=== PATIENT | female | born 1940 | race Caucasian/White ===

== ENCOUNTER → 2018-05-21 | Outpatient (CLI) | payer MEDICARE, BC | LOC: LABWHC1 11:55 | PROVIDERS: ATTEND Orthopaedic Surgery | DX: Z01.812 Encounter for preprocedural laboratory examination (principal) | CPT/HCPCS: 87070 ==

== ENCOUNTER 2018-05-25 11:20 | Inpatient (IN) | payer MEDICARE, BC ==
[2018-05-19 14:18] VITALS: BMI 42.5
--- NOTE | 2018-05-24 10:21 | HP ---
HISTORY AND PHYSICAL CHIEF COMPLAINT: Right knee pain. HISTORY OF PRESENT ILLNESS: The patient is a 78-year-old retired female who presents with progressive right knee pain secondary to osteoarthrosis worsening over the past year. She has a difficult time with weightbearing activities. She notes significant pain and she does limp. She has been using a cane in addition has tried medications and injections with only partial temporary relief. PAST MEDICAL HISTORY: Significant for asthma, breast cancer, depression, hypertension. PAST SURGICAL HISTORY: Significant for cholecystectomy. CURRENT MEDICATIONS: Aleve and aspirin, atenolol, atorvastatin. ALLERGIES: She denies drug allergies. FAMILY HISTORY: Significant for cancer. SOCIAL HISTORY: Significant for previous tobacco use. REVIEW OF SYSTEMS: Sixteen point review of systems otherwise reviewed and is noncontributory. PHYSICAL EXAMINATION: On examination, the patient is approximately 5 foot 1, 220 pounds of endomorphic habitus. HEENT exam is nonfocal. NECK: Supple. She has painless passive motion of the right hip. Straight leg raise is negative. Active motion right knee -6 to 100 degrees of flexion. She has a moderate effusion. She is tender about the lateral joint line. She has genu valgum alignment. Collaterals are stable, Rekha's negative, Marleny's is equivocal. Her distal neurovascular appears intact in the right lower extremity. X-rays of the right knee obtained in the office show severe lateral and patellofemoral compartment narrowing. IMPRESSION: 1. Right knee severe lateral and patellofemoral compartment osteoarthrosis. 2. BMI of 41.57-morbid obesity. RECOMMENDATIONS: I talked to the patient at length regarding her condition and treatment options. At this point, she remains quite symptomatic despite conservative measures. After thorough discussion, she opts to proceed with surgery. We will plan to proceed with right total knee arthroplasty. We will institute DVT prophylaxis postoperatively. MMODL / IJN: [id number] /
[~2018-05-25 11:20] MED LIST: ACETAMINOPHEN TAB 500 MG TAB PO ONE; DEXAMETHASONE SOD PHOSPHATE 10 MG/ML 1 ML VIAL IV ONE; HYDROmorphone 1 MG/ML 1 ML SYRINGE IVP PRN; LIDOCAINE 1% 20 ML VIAL (10MG/ML) FOR IV START INTRADERMA PRN; MELOXICAM 7.5 MG TAB PO ONE; MIDAZOLAM (PF) 2 MG/2 ML VIAL IV PRN; ONDANSETRON 4 MG/2 ML VIAL IVP ONE; TRANEXAMIC ACID 1,000 MG in SODIUM CHLORIDE 0.9% 50 ML IVPB ONE; ceFAZolin IN SWFI 2 GM/20 ML SYRINGE IVP ONE; fentaNYL (PF) 50 MCG/ML 2 ML AMP IV PRN
[2018-05-25] MEDS: LACTATED RINGERS 1,000 ML IV SCH ×2 (12:56→13:59)
[2018-05-25] MEDS ORDERED: MIDAZOLAM 2 MG/2 ML VIAL IV ONE (13:10)
[2018-05-25] MEDS ORDERED: fentaNYL (PF) 50 MCG/ML 2 ML AMP IV ONE (13:10)
[2018-05-25] MEDS ORDERED: ROPIVACAINE 1,100 MG, SODIUM CHLORIDE 0.9% 500 ML 330 ML MISCELLANE PRN ×2 (13:34)
--- NOTE | 2018-05-25 13:37 | P.ONQ ---
Anesthesiology Proc Note - PNB - Peripheral Nerve Block Performed Right Adductor Canal Infusion Time Out Performed: Yes Procedure Start Time: 13:10 Procedure Stop Time: 13:25 Indication: Requested by physician Specifically requested for management of pain by : Alok Dickerson Sedation Type: Sedate with meaningful contact maintained Preparation: Sterile Dressing Position: Supine Needle Types: Other (see comment) (Pujunk) Needle Size: 100mm (4") Needle Gauge: 20 Technique: Ultrasound Injectate: 0.5% Ropivacaine (see comment for volume) (20 ml) Blood Aspirated: No Pain Paresthesia on Injection Noted: No Resistance on Injection: Normal Events: Uneventful and Well Tolerated
[2018-05-25] MEDS ORDERED: ROPIVACAINE 246.25 MG, EPINEPHrine 0.5 MG, KETOROLAC 30 MG, cloNIDine HCL/PF 80 MCG, WA... MISCELLANE ONE ×5 (13:39)
[2018-05-25] MEDS ORDERED: MIDAZOLAM 2 MG/2 ML VIAL ONE (14:02)
[2018-05-25] MEDS ORDERED: fentaNYL (PF) 50 MCG/ML 2 ML AMP ONE (14:02)
[2018-05-25] MEDS ORDERED: PROPOFOL 10 MG/ML 20 ML VIAL IV ONE (14:02)
[2018-05-25] MEDS ORDERED: ceFAZolin 3,000 MG in SODIUM CHLORIDE 0.9% IRRIGATIO 3,000 ML IRRIGATION ONE (14:31)
[2018-05-25] MEDS ORDERED: HYDROcodone/APAP 5-325MG 1 EACH TAB PO PRN (15:41)
[2018-05-25] MEDS ORDERED: NALOXONE 0.4 MG/ML 1 ML VIAL IV PRN (15:41)
[2018-05-25] MEDS ORDERED: MAGNESIUM HYDROXIDE 2,400 MG/10 ML CUP PO PRN (15:41)
[2018-05-25] MEDS ORDERED: HYDROmorphone 1 MG/ML 1 ML SYRINGE IVP PRN (15:41)
[2018-05-25] MEDS ORDERED: ONDANSETRON 4 MG/2 ML VIAL IVP PRN (15:41)
[2018-05-25] MEDS ORDERED: LACTATED RINGERS 1,000 ML IV ONE (15:52)
--- NOTE | 2018-05-25 16:11 | P.OP ---
Date of Procedure: 05/25/18 Preoperative Diagnosis: Right knee severe tricompartmental osteoarthrosis Postoperative Diagnosis: Same Procedure(s) Performed: Right total knee arthroplasty-cruciate substitutingcemented Implants: Depuy Attune size 5 cemented femoral component, size 4 cemented tibial component , 11 mm articular surface, 32 mm cemented patellar component, 50 mm tibial stem. This is a posterior stabilized implant. Anesthesia: spinal Surgeon: Alok Dickerson Clinical Lab Specialist #1: Alessandro Chinchilla Estimated Blood Loss (ml): 50 Pathology: other (Bone fragments) Condition: stable Disposition: PACU Indications for Procedure: The patient is a 78-year-old female who presents with severe right knee pain secondary osteoarthrosis despite conservative measures. A discussion of the risks and benefits of operative intervention versus continued conservative measures was made with patient. She opted to proceed with surgery. Operative risks to include infection, neurovascular injury, development of blood clots, possible component loosening, possible component failure and need for subsequent procedures was discussed. Informed consent was obtained. Operative Findings: As below Description of Procedure: The patient was brought to the operating room, and after induction of spinal anesthesia the right lower extremity was prepped and draped in a normal fashion. The tourniquet was inflated to 270 mm marker. A longitudinal incision extending 3 finger breaths above the superior pole of patella extending to the medial aspect the tibial tubercle was then made. The skin and subcutaneous tissues were divided sharply. Electrocautery was used for hemostasis. A medial parapatellar arthrotomy was performed. The medial soft tissues to include the superficial and deep portions of the medial collateral ligament were elevated subperiosteally. The patella was everted. A portion of the retropatellar fat pad was excised sharply. The lateral collateral ligament and popliteus were elevated subperiosteally with electrocautery off the lateral femoral upper condyle to help with balancing. The anterior cruciate ligament was sacrificed. Blunt retractors were placed. A starting hole was made in the distal femur 1 cm anterior to the posterior cruciate ligament origin. An intramedullary femoral guide was then inserted planning on 5 valgus distal cut with 9 mm distal resection. The cutting block was pinned in place. The distal cut was then made. The posterior referencing sizing guide was utilized. I felt size 5 was most appropriate. 3 of external rotation was built into the system and verified off the trans-epicondylar axis and the posterior condyles. The cutting block was pinned in place. The anterior, posterior, and chamfer cuts then made. Bone fragments were removed. The intercondylar guide was placed and the notch cut was made with a sagittal saw. The bone block was removed in one fragment. The trial component was then placed. There is good anterior to posterior and medial to lateral fit. The distal peg holes were drilled. The trial component was removed. Attention was then paid towards preparing the proximal femur. An extra medullary guide was utilized in line with the tibial shaft and second metatarsal distally. I planned on 6 mm resection from the medial compartment. The cutting block was pinned in place. The proximal tibial cut was then made. The bone was removed in one fragment. The remnants of the medial and lateral menisci were excised at the capsular junction with electrocautery. The tibia sized most appropriately at size 4. The trial femoral and tibial components were placed along with an 11 mm articular surface. I was able to obtain full flexion and extension with internal and external rotation. After several flexion and extension cycles, the tibial rotation was marked with electrocautery line with the medial one third of the tibial tubercle. Attention was then paid towards preparing the patella. A patella reamer was utilized taking stem to 14 mm of bone stock. A good flush cut was made. The patella sized most appropriately 32 mm. The peg holes were drilled. The trial components placed. I had good patellofemoral tracking with no hands technique. The trial components were then removed. The tibia was prepared in the appropriate rotation with appropriate drill and keel punch. I planned on 50 mm of additional tibial stem. The posterior osteophytes were removed with a curved osteotome. The flexion and extension gaps were checked and felt to be symmetric at 11 mm. A trial components were then removed. The posterior soft tissues were injected with ropivacaine. The bony surfaces were prepared with pulsatile lavage and dried. The tibial component was then cemented place was fully seated. Excess cement was removed. The femoral component cemented place and was fully seated. Excess cement was removed. The trial 11 mm Tickler surface was placed and the knee was put in full extension. The patella component was cemented place. After the cement had sufficiently hardened, the knee was again taken through a range of motion. Again I was able to obtain full flexion and extension with varus and valgus stress. The trial 11 mm articular surface was removed and the final one inserted. This was fully seated. Care was taken to avoid any soft tissue interposition. Pulsatile lavage was again utilized. The medial parapatellar arthrotomy was closed with #2 Ethibond suture. The tourniquet was deflated with approximately 1 hour total tourniquet time. Final hemostasis was obtained with the cautery. There was minimal bleeding therefore a deep drain was not placed. The subcutaneous tissues were reapproximated with interrupted 2 -0 Vicryl sutures. The skin was reprepped with 3-0 subcuticular strata fix suture. Skin tape and adhesive was applied. A sterile dressing was applied. The patient was awoken from sedation and transferred to recovery room in good condition. Blood loss was estimated at 50 mL. No complications were incurred. Sponge and needle counts were correct at the end of the case.
--- NOTE | 2018-05-25 16:56 | XR ---
PROCEDURE: XR knee limited RT - 2V DATE AND TIME: 05/25/2018 4:51 PM CLINICAL INDICATION: PHH; Evaluation for Postop abnormality and alignment TECHNIQUE: AP and lateral views COMPARISON: None FINDINGS: TKR has anatomic positioning and alignment. Postprocedural changes noted. No unexpected fin dings. IMPRESSION: Postoperative examination.
[2018-05-25] MEDS: HYDROmorphone 1 MG/ML 1 ML SYRINGE IVP PRN ×2 (17:47→23:39)
[2018-05-25] MEDS: traMADol 50 MG TAB PO PRN (17:47)
[2018-05-25] MEDS: ceFAZolin IN SWFI 2 GM/20 ML SYRINGE IVP SCH (22:26)
[2018-05-25] MEDS: SENNOSIDES-DOCUSATE SODIUM 1 EACH TAB PO SCH (22:27)
[2018-05-25] MEDS: HYDROcodone/APAP 5-325MG 1 EACH TAB PO PRN (22:28)
[2018-05-26] MEDS: HYDROcodone/APAP 5-325MG 1 EACH TAB PO PRN ×3 (05:18→17:50)
[2018-05-26] MEDS: HYDROmorphone 1 MG/ML 1 ML SYRINGE IVP PRN ×2 (05:19→21:17)
[2018-05-26] MEDS: ceFAZolin IN SWFI 2 GM/20 ML SYRINGE IVP SCH (05:19)
[2018-05-26] MEDS: LACTATED RINGERS 1,000 ML IV SCH (05:49)
--- NOTE | 2018-05-26 07:35 | P.PN ---
Progress Note - Text Progress Note Date: 05/26/18 Postoperative day # 1 status post Right total knee arthroplasty, under spinal anesthesia, and adductor canal catheter placed for postoperative analgesia, currently at ropivacaine 0.2% 8 mL per hour and continuous infusion, visual analogue scale is 5/10, patient using oral pain medication for breakthrough pain. Mostly in the posterior aspect of the knee, Assessment and plan= Acute postoperative pain, adductor canal catheter for pain control, we'll continue the same management.
[2018-05-26 07:40] LABS: Basophils % (A) 0 %; Eosinophils % (A) 0 %; HCT 40.4 % (34.0-46.0); HGB 13.5 gm/dL (11.4-16.0); Lymphocytes # (A) 0.8 k/uL (1.0-4.8); Lymphocytes % (A) 6 %; MCH 30.9 pg (25.0-35.0); MCHC 33.4 g/dL (31.0-37.0); MCV 92.5 fL (80.0-100.0); Mean Platelet Volume 6.9; Monocytes # (A) 0.7 k/uL (0-1.0); Monocytes % (A) 6 %; Neutrophils # (A) 11.5 k/uL (1.3-7.7); Neutrophils % (A) 88 %; Platelet Count 182 k/uL (150-450); RBC 4.37 m/uL (3.80-5.40); RDW 13.6 % (11.5-15.5); WBC 13.1 k/uL (3.8-10.6)
[2018-05-26 09:11] LABS: Albumin 3.1 g/dL (3.5-5.0); Calcium 9.2 mg/dL (8.4-10.2); Potassium 4.9 mmol/L (3.5-5.1); Total Bilirubin 0.5 mg/dL (0.2-1.3); Total Protein 5.7 g/dL (6.3-8.2)
[2018-05-26] MEDS: LETROZOLE 2.5 MG TAB PO SCH (09:48)
[2018-05-26] MEDS: RIVAROXABAN 10 MG TAB PO SCH (09:48)
[2018-05-26] MEDS: traMADol 50 MG TAB PO PRN ×3 (09:48→21:17)
[2018-05-26] MEDS: CHOLECALCIFEROL 1,000 UNIT TAB PO SCH (09:48)
[2018-05-26] MEDS: ATENOLOL 25 MG TAB PO SCH (09:49)
[2018-05-26] MEDS: ATORVASTATIN 10 MG TAB PO SCH (09:49)
--- NOTE | 2018-05-26 10:57 | P.PN ---
Subjective Progress Note Date: 05/26/18 Principal diagnosis: Status post right total knee arthroplasty Patient is in today resting in her hospital bed, her daughter is present with her at bedside. Patient is ambulating with therapy minimally in the room. She denies any chest pain, shortness of breath, fever chills. Objective - Vital Signs Vital signs: Vital Signs Temp 97.8 F 05/26/18 07:20 Pulse 62 05/26/18 07:20 Resp 18 05/26/18 07:20 BP 117/64 05/26/18 07:20 Pulse Ox 95 05/26/18 07:20 Intake & Output 05/25/18 05/26/18 05/26/18 18:59 06:59 18:59 Intake Total 1001 360 Output Total 50 Balance 951 360 Weight 102.058 kg Intake: IV 1001 Intake, IV Titration 360 Amount Lactated Ringers 1,000 ml 360 @ 40 mls/hr IV .Q24H [facility] Rx#:[id number] Output: Estimated Blood Loss 50 Other: # Voids 2 - Exam Right lower extremity: Incision is clean, dry, and intact. The exofin fusion tape is in good condition. There is minimal soft tissue swelling and ecchymosis surrounding the medial and lateral aspects of the incision. Calf is soft, no tenderness with palpation. Plantar flexion, dorsiflexion, EHL, FHL are intact. Sensory exam to light touch throughout the extremity is intact, dorsal pedis pulses 2+. - Labs CBC & Chem 7: 05/26/18 07:16 05/26/18 07:15 Labs: Abnormal Lab Results - Last 24 Hours (Table) 05/26/18 05/26/18 Range/Units 07:15 07:16 WBC 13.1 H (3.8-10.6) k/uL Neutrophils # 11.5 H (1.3-7.7) k/uL Lymphocytes # 0.8 L (1.0-4.8) k/uL BUN 21 H (7-17) mg/dL Glucose 137 H (74-99) mg/dL Total Protein 5.7 L (6.3-8.2) g/dL Albumin 3.1 L (3.5-5.0) g/dL Assessment and Plan Plan: Assessment: Postop day #1 status post right total knee arthroplasty Plan: Pain control, continue current medication GI and DVT prophylaxis, continue current medication Daily dressing changes Ice and elevate Continue her physical therapy and use of CPM Medical recommendations Discharge planning: Likely discharge home, plan for the next day or 2 Time with Patient: Less than 30
--- NOTE | 2018-05-26 12:24 | P.CONS ---
History of Present Illness - Reason for Consult Consult date: 05/26/18 medical managment Requesting physician: Alessandro Chinchilla - Chief Complaint OA of the right knee - History of Present Illness This is a 78-year-old female patient of Dr. Reyes. Patient presented for an elective total right knee arthroplasty with Dr. Dickerson. Patient is currently postop day 1. Daughter at bedside. Patient has a past medical history of breast cancer in which she completed treatment in 2013, dyslipidemia essential hypertension and chest pain. Today patient is currently resting comfortably in chair. Patient does report some discomfort to left knee. White blood cell slightly elevated at 13.1. Will order urinary analysis patient currently on been DC'd home when medically cleared. Patient denies chest pain or shortness of breath. Denies nausea vomiting or diarrhea. 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, urinary leakage-wears a pad, breast cancer- 35 radiation treatments in spring 2013 History of Any Multi-Drug Resistant Organisms: None Reported Past Surgical History: Breast Surgery, Cholecystectomy, Hysterectomy, Tonsillectomy Additional Past Surgical History / Comment(s): benign lump removed from left breast, later left breast lumpectomy, D&C Past Anesthesia/Blood Transfusion Reactions: Previous Problems w/ Anesthesia, Motion Sickness Additional Past Anesthesia/Blood Transfusion Reaction / Comm: diff time waking up, pt states no IV in left arm Past Psychological History: Depression Smoking Status: Former smoker Past Alcohol Use History: Rare Additional Past Alcohol Use History / Comment(s): quit smoking 1971, started smoking age 15, < 1 PPD Past Drug Use History: None Reported - Past Family History Mother Family Medical History: No Reported History Medications and Allergies Home Medications Medication Instructions Recorded Confirmed Type Aspirin [Adult Low Dose Aspirin EC] 81 mg PO DAILY 05/19/18 05/25/18 History Atenolol [Tenormin] 25 mg PO DAILY 05/19/18 05/25/18 History Atorvastatin [Lipitor] 10 mg PO DAILY 05/19/18 05/25/18 History Cholecalciferol [Vitamin D3] 2,000 unit PO DAILY 05/19/18 05/25/18 History Cranberry(Dose Unknown) 1 tab PO DAILY 05/19/18 05/25/18 History Diazepam [Valium] 5 mg PO HS 05/19/18 05/25/18 History Letrozole 2.5 mg PO DAILY 05/19/18 05/25/18 History Naproxen Sodium [Aleve] 220 mg PO Q12HR PRN 05/19/18 05/25/18 History Allergies Allergy/AdvReac Type Severity Reaction Status Date / Time No Known Allergies Allergy Verified 05/25/18 15:49 Physical Exam Vitals: Vital Signs Temp Pulse Pulse Resp BP Pulse Ox 05/26/18 07:20 97.8 F 62 18 117/64 95 05/26/18 01:05 97.7 F 64 18 98/62 94 L 05/25/18 19:29 64 114/73 92 L 05/25/18 19:14 68 117/77 90 L 05/25/18 18:59 69 120/75 93 L 05/25/18 18:44 69 121/79 90 L 05/25/18 18:29 66 119/79 91 L 05/25/18 18:14 72 129/84 90 L 05/25/18 17:59 69 134/83 94 L 05/25/18 17:44 71 144/81 97 05/25/18 17:29 59 L 134/72 97 05/25/18 17:14 56 L 127/62 95 05/25/18 17:02 49 L 16 116/58 99 05/25/18 16:45 49 L 16 124/60 98 05/25/18 16:30 53 L 16 112/66 98 05/25/18 16:15 54 L 16 109/56 98 05/25/18 16:02 97.8 F 64 16 112/57 90 L 05/25/18 13:35 50 L 16 120/59 98 05/25/18 13:25 50 L 16 160/75 97 05/25/18 12:36 98.3 F 53 L 16 160/75 95 Intake and Output 05/25/18 05/26/18 05/26/18 22:59 06:59 14:59 Intake Total 0 360 Output Total 50 Balance -50 360 Intake: IV 0 Intake, IV Titration 360 Amount Lactated Ringers 1,000 ml 360 @ 40 mls/hr IV .Q24H [facility] Rx#:[id number] Output: Estimated Blood Loss 50 Other: # Voids 1 2 Weight 102.058 kg Head normocephalic Neck supple Lungs clear to auscultation bilaterally no wheezing or crackles Heart regular rate and rhythm S1-S2, no rub or gallop Abdomen is soft nontender nondistended positive bowel sounds no hepatosplenomegaly Extremities no edema. Right knee dressing clean dry and intact Neuro alert and orientated to 3 Results CBC & Chem 7: 05/26/18 07:16 12 07:15 Labs: Abnormal Lab Results - Last 24 Hours (Table) 05/26/18 05/26/18 Range/Units 07:15 07:16 WBC 13.1 H (3.8-10.6) k/uL Neutrophils # 11.5 H (1.3-7.7) k/uL Lymphocytes # 0.8 L (1.0-4.8) k/uL BUN 21 H (7-17) mg/dL Glucose 137 H (74-99) mg/dL Total Protein 5.7 L (6.3-8.2) g/dL Albumin 3.1 L (3.5-5.0) g/dL Assessment and Plan Assessment: 1. Status post total right knee arthroplasty with Dr. Beauchamp. Postop day 1. Pain meds per surgical services. Patient currently on Xarelato for DVT prophylaxis 2. History of hyperlipidemia. Continue lipitor 3. Essential hypertension. Continue atenolol 4. History of depression 5. History of breast cancer. Patient states she completed treatment in 2013 currently on letrozole 6. Chest pain/angina 7. Leukocytosis white blood count slightly elevated at 13.1. Patient denies any complaints at this time will order urinary analysis Thank you for this consultation we will continue to follow patient closely throughout stay Time with Patient: Greater than 30 (Greater than 60% of the total time spent in counseling and coordination of care. I performed an examination of the patient and discussed their management with the Nurse Practitioner. I have reviewed the Nurse Practitioner's notes and agree with the documented findings and plan of care)
[2018-05-26 14:39] LABS: Appearance,Urine Clear (Clear); Bilirubin,Urine Negative (Negative); Blood,Urine Negative (Negative); Color,Urine Yellow; Glucose,Urine (UA) Negative (Negative); Ketones,Urine 1+ (Negative); Leukocyte Esterase,Urine Negative (Negative); Mucus,Urine Rare /hpf; Nitrite,Urine Negative (Negative); Protein,Urine 1+ (Negative); Specific Gravity,Urine 1.037 (1.001-1.035); Squamous Epithelial Cell,Urine 6 /hpf (0-4); Urobilinogen,Urine <2.0 mg/dL (<2.0); WBC,Urine 2 /hpf (0-5)
[2018-05-26] MEDS: SENNOSIDES-DOCUSATE SODIUM 1 EACH TAB PO SCH (21:16)
[2018-05-27] MEDS: HYDROmorphone 1 MG/ML 1 ML SYRINGE IVP PRN (04:15)
[2018-05-27 07:18] LABS: Basophils % (A) 0 %; Eosinophils # (A) 0.1 k/uL (0-0.7); Eosinophils % (A) 1 %; HCT 40.6 % (34.0-46.0); Lymphocytes # (A) 0.7 k/uL (1.0-4.8); Lymphocytes % (A) 7 %; MCH 30.1 pg (25.0-35.0); MCHC 32.1 g/dL (31.0-37.0); MCV 93.5 fL (80.0-100.0); Mean Platelet Volume 7.3; Monocytes # (A) 0.8 k/uL (0-1.0); Monocytes % (A) 8 %; Neutrophils # (A) 8.2 k/uL (1.3-7.7); Neutrophils % (A) 83 %; Platelet Count 166 k/uL (150-450); RBC 4.34 m/uL (3.80-5.40); WBC 9.9 k/uL (3.8-10.6)
[2018-05-27 07:37] LABS: Albumin 3.2 g/dL (3.5-5.0); Potassium 4.8 mmol/L (3.5-5.1); Total Bilirubin 0.7 mg/dL (0.2-1.3); Total Protein 5.8 g/dL (6.3-8.2)
[2018-05-27] MEDS: LACTATED RINGERS 1,000 ML IV SCH (07:42)
[2018-05-27] MEDS: LETROZOLE 2.5 MG TAB PO SCH (07:43)
[2018-05-27] MEDS: HYDROcodone/APAP 5-325MG 1 EACH TAB PO PRN ×3 (07:47→20:36)
[2018-05-27] MEDS: ATENOLOL 25 MG TAB PO SCH (07:48)
[2018-05-27] MEDS: CHOLECALCIFEROL 1,000 UNIT TAB PO SCH (07:48)
[2018-05-27] MEDS: RIVAROXABAN 10 MG TAB PO SCH (07:49)
[2018-05-27] MEDS: ATORVASTATIN 10 MG TAB PO SCH (07:49)
--- NOTE | 2018-05-27 10:05 | P.PN ---
Subjective Progress Note Date: 05/27/18 This is a 78-year-old female patient of Dr. Reyes. Patient presented for an elective total right knee arthroplasty with Dr. Dickerson. Patient is currently postop day 1. Daughter at bedside. Patient has a past medical history of breast cancer in which she completed treatment in 2013, dyslipidemia essential hypertension and chest pain. Today patient is currently resting comfortably in chair. Patient does report some discomfort to left knee. White blood cell slightly elevated at 13.1. Will order urinary analysis patient currently on been DC'd home when medically cleared. Patient denies chest pain or shortness of breath. Denies nausea vomiting or diarrhea. Denies any urinary burning or frequency On 05/27/2018 patient is currently up walking from Bact[place] to chair with assistance. At this time discharge planning is for ECF possibly [facility] due to patient living independently with minimum help. Patient's white blood cell count has normalized. UA negative for UTI. Patient denies any other symptoms at this time. Patient denies chest pain or shortness of breath. Patient denies nausea vomiting or diarrhea. Patient denies any urinary burning or frequency. Objective - Vital Signs Vital signs: Vital Signs Temp 98.2 F 05/27/18 07:00 Pulse 77 05/27/18 07:00 Resp 19 05/27/18 07:00 BP 133/78 05/27/18 07:00 Pulse Ox 92 L 05/27/18 07:00 Intake & Output 05/26/18 05/27/18 05/27/18 18:59 06:59 18:59 Intake Total 400 800 Balance 400 800 Intake: Intake, IV Titration 400 Amount Lactated Ringers 1,000 ml 400 @ 40 mls/hr IV .Q24H [facility] Rx#:[id number] Oral 800 Other: # Voids 2 - Exam Head normocephalic Neck supple Lungs clear to auscultation bilaterally no wheezing or crackles Heart regular rate and rhythm S1-S2, no rub or gallop Abdomen is soft nontender nondistended positive bowel sounds no hepatosplenomegaly Extremities no edema. Right knee dressing clean dry and intact Neuro alert and orientated to 3 - Labs CBC & Chem 7: 05/27/18 06:28 05/27/18 06:28 Labs: Abnormal Lab Results - Last 24 Hours (Table) 05/26/18 05/27/18 05/27/18 Range/Units 14:00 06:28 06:28 Neutrophils # 8.2 H (1.3-7.7) k/uL Lymphocytes # 0.7 L (1.0-4.8) k/uL Sodium 136 L (137-145) mmol/L BUN 22 H (7-17) mg/dL Glucose 149 H (74-99) mg/dL Total Protein 5.8 L (6.3-8.2) g/dL Albumin 3.2 L (3.5-5.0) g/dL Ur Specific [place] 1.037 H (1.001-1.035) Urine Protein 1+ H (Negative) Urine Ketones 1+ H (Negative) Ur Squamous Epith Cells 6 H (0-4) /hpf Urine Mucus Rare H (None) /hpf Assessment and Plan Assessment: 1. Status post total right knee arthroplasty with Dr. Beauchamp. Postop day 2. Pain meds per surgical services. Patient currently on Xarelato for DVT prophylaxis 2. History of hyperlipidemia. Continue lipitor 3. Essential hypertension. Continue atenolol 4. History of depression 5. History of breast cancer. Patient states she completed treatment in 2013 currently on letrozole 6. Chest pain/angina 7. Leukocytosis white blood count slightly elevated at 13.1. Urinary analysis negative for infection. Patient remains afebrile. White blood cell 9.9 Thank you for this consultation we will continue to follow patient closely throughout stay At this time discharge planning for rehab ECF placement christelle Gregory I performed an examination of the patient and discussed their management with the Nurse Practitioner. I have reviewed the Nurse Practitioner's notes and agree with the documented findings and plan of care
--- NOTE | 2018-05-27 11:55 | P.PN ---
Subjective Progress Note Date: 05/27/18 Principal diagnosis: Status post right total knee arthroplasty Patient is in today resting in her hospital bed, her daughter is present with her at bedside. She denies any chest pain, shortness of breath, fever chills. Due to patient's independent living at home along with her difficulty with ambulation at this time, we recommend discharged to a rehab facility. Objective - Vital Signs Vital signs: Vital Signs Temp 98.2 F 05/27/18 07:00 Pulse 77 05/27/18 07:00 Resp 19 05/27/18 07:00 BP 133/78 05/27/18 07:00 Pulse Ox 92 L 05/27/18 07:00 Intake & Output 05/26/18 05/27/18 05/27/18 18:59 06:59 18:59 Intake Total 400 800 Balance 400 800 Intake: Intake, IV Titration 400 Amount Lactated Ringers 1,000 ml 400 @ 40 mls/hr IV .Q24H [facility] Rx#:[id number] Oral 800 Other: # Voids 2 - Exam Right lower extremity: Incision is clean, dry, and intact. The exofin fusion tape is in good condition. There is minimal soft tissue swelling and ecchymosis surrounding the medial and lateral aspects of the incision. Calf is soft, no tenderness with palpation. Plantar flexion, dorsiflexion, EHL, FHL are intact. Sensory exam to light touch throughout the extremity is intact, dorsal pedis pulses 2+. - Labs CBC & Chem 7: 05/27/18 06:28 05/27/18 06:28 Labs: Abnormal Lab Results - Last 24 Hours (Table) 05/26/18 05/27/18 05/27/18 Range/Units 14:00 06:28 06:28 Neutrophils # 8.2 H (1.3-7.7) k/uL Lymphocytes # 0.7 L (1.0-4.8) k/uL Sodium 136 L (137-145) mmol/L BUN 22 H (7-17) mg/dL Glucose 149 H (74-99) mg/dL Total Protein 5.8 L (6.3-8.2) g/dL Albumin 3.2 L (3.5-5.0) g/dL Ur Specific [place] 1.037 H (1.001-1.035) Urine Protein 1+ H (Negative) Urine Ketones 1+ H (Negative) Ur Squamous Epith Cells 6 H (0-4) /hpf Urine Mucus Rare H (None) /hpf Assessment and Plan Plan: Assessment: Postop day #2 status post right total knee arthroplasty Plan: Pain control, continue current medication GI and DVT prophylaxis, continue current medication Daily dressing changes Ice and elevate Continue her physical therapy and use of CPM Medical recommendations Discharge planning: Plan for discharge to rehab tomorrow Time with Patient: Less than 30
[2018-05-27] MEDS: traMADol 50 MG TAB PO PRN (18:49)
[2018-05-27] MEDS: SENNOSIDES-DOCUSATE SODIUM 1 EACH TAB PO SCH (20:35)
[2018-05-28 02:48] VITALS: RESP 18
[2018-05-28] MEDS: HYDROcodone/APAP 5-325MG 1 EACH TAB PO PRN ×2 (06:00→11:48)
[2018-05-28 07:47] LABS: Basophils % (A) 0 %; Eosinophils # (A) 0.1 k/uL (0-0.7); Eosinophils % (A) 2 %; HCT 37.5 % (34.0-46.0); HGB 12.4 gm/dL (11.4-16.0); Lymphocytes # (A) 0.8 k/uL (1.0-4.8); Lymphocytes % (A) 11 %; MCH 30.6 pg (25.0-35.0); MCHC 33.1 g/dL (31.0-37.0); MCV 92.3 fL (80.0-100.0); Mean Platelet Volume 7.3; Monocytes # (A) 0.5 k/uL (0-1.0); Monocytes % (A) 7 %; Neutrophils # (A) 5.5 k/uL (1.3-7.7); Neutrophils % (A) 78 %; Platelet Count 153 k/uL (150-450); RBC 4.07 m/uL (3.80-5.40); RDW 13.8 % (11.5-15.5)
[2018-05-28 08:13] VITALS: BP 106/64; PULSE 99; TEMP 98.6
[2018-05-28 09:04] LABS: ALT 24 U/L (9-52); AST 25 U/L (14-36); Alkaline Phosphatase 99 U/L (38-126); Anion Gap 6 mmol/L; Blood Urea Nitrogen 13 mg/dL (7-17); Carbon Dioxide 26 mmol/L (22-30); Chloride 106 mmol/L (98-107); Glucose 118 mg/dL (74-99); Potassium 4.4 mmol/L (3.5-5.1); Sodium 138 mmol/L (137-145); Total Bilirubin 0.8 mg/dL (0.2-1.3); Total Protein 5.5 g/dL (6.3-8.2)
[2018-05-28] MEDS: LETROZOLE 2.5 MG TAB PO SCH (09:46)
[2018-05-28] MEDS: RIVAROXABAN 10 MG TAB PO SCH (09:58)
[2018-05-28] MEDS: CHOLECALCIFEROL 1,000 UNIT TAB PO SCH (09:58)
[2018-05-28] MEDS: ATORVASTATIN 10 MG TAB PO SCH (09:58)
[2018-05-28] MEDS: ATENOLOL 25 MG TAB PO SCH (09:59)
[2018-05-28] MEDS: LACTATED RINGERS 1,000 ML IV SCH (10:01)
--- NOTE | 2018-05-28 10:29 | P.PN ---
Subjective Progress Note Date: 05/28/18 Principal diagnosis: Status post right total knee arthroplasty Patient is in today resting in her hospital bed, her daughter is present with her at bedside. She denies any chest pain, shortness of breath, fever chills. Due to patient's independent living at home along with her difficulty with ambulation at this time, we recommend discharged to a rehab facility. Objective - Vital Signs Vital signs: Vital Signs Temp 98.6 F 05/28/18 07:00 Pulse 99 05/28/18 07:00 Resp 18 05/28/18 07:00 BP 106/64 05/28/18 07:00 Pulse Ox 92 L 05/28/18 07:00 Intake & Output 05/27/18 05/28/18 05/28/18 18:59 06:59 18:59 Intake Total 550 Balance 550 Intake: Oral 550 Other: # Voids 1 1 - Exam Right lower extremity: Incision is clean, dry, and intact. The exofin fusion tape is in good condition. There is minimal soft tissue swelling and ecchymosis surrounding the medial and lateral aspects of the incision. Calf is soft, noteable swelling discomfort with palpation. Plantar flexion, dorsiflexion, EHL, FHL are intact. Sensory exam to light touch throughout the extremity is intact, dorsal pedis pulses 2+. - Labs CBC & Chem 7: 05/28/18 06:50 05/28/18 06:50 Labs: Abnormal Lab Results - Last 24 Hours (Table) 05/28/18 05/28/18 Range/Units 06:50 06:50 Lymphocytes # 0.8 L (1.0-4.8) k/uL Glucose 118 H (74-99) mg/dL Total Protein 5.5 L (6.3-8.2) g/dL Albumin 3.0 L (3.5-5.0) g/dL Assessment and Plan Plan: Assessment: Postop day #3 status post right total knee arthroplasty Plan: Will order doppler of right lower extremity Pain control, plan for dc on [place] [facility] and DVT prophylaxis, continue current medication Daily dressing changes Ice and elevate Continue her physical therapy and use of CPM Medical recommendations Discharge planning: Plan for discharge to rehab tday Time with Patient: Less than 30
--- NOTE | 2018-05-28 10:49 | P.PN ---
Subjective Progress Note Date: 05/28/18 This is a 78-year-old female patient of Dr. Reyes. Patient presented for an elective total right knee arthroplasty with Dr. Dickerson. Patient is currently postop day 1. Daughter at bedside. Patient has a past medical history of breast cancer in which she completed treatment in 2013, dyslipidemia essential hypertension and chest pain. Today patient is currently resting comfortably in chair. Patient does report some discomfort to left knee. White blood cell slightly elevated at 13.1. Will order urinary analysis patient currently on been DC'd home when medically cleared. Patient denies chest pain or shortness of breath. Denies nausea vomiting or diarrhea. Denies any urinary burning or frequency On 05/27/2018 patient is currently up walking from Back from bathroom to chair with assistance. At this time discharge planning is for ECF possibly [facility] due to patient living independently with minimum help. Patient's white blood cell count has normalized. UA negative for UTI. Patient denies any other symptoms at this time. Patient denies chest pain or shortness of breath. Patient denies nausea vomiting or diarrhea. Patient denies any urinary burning or frequency. On 05/28/2018 patient is currently sitting up in chair. Patient is alert and oriented 3. Patient denies chest pain or shortness of breath. Patient has denies nausea vomiting or diarrhea. Patient denies any urinary burning or frequency. Objective - Vital Signs Vital signs: Vital Signs Temp 98.6 F 05/28/18 07:00 Pulse 99 05/28/18 07:00 Resp 18 05/28/18 07:00 BP 106/64 05/28/18 07:00 Pulse Ox 92 L 05/28/18 07:00 Intake & Output 05/27/18 05/28/18 05/28/18 18:59 06:59 18:59 Intake Total 550 Balance 550 Intake: Oral 550 Other: # Voids 1 1 - Exam Head normocephalic Neck supple Lungs clear to auscultation bilaterally no wheezing or crackles Heart regular rate and rhythm S1-S2, no rub or gallop Abdomen is soft nontender nondistended positive bowel sounds no hepatosplenomegaly Extremities no edema. Right knee dressing clean dry and intact Neuro alert and orientated to 3 - Labs CBC & Chem 7: 05/28/18 06:50 05/28/18 06:50 Labs: Abnormal Lab Results - Last 24 Hours (Table) 05/28/18 05/28/18 Range/Units 06:50 06:50 Lymphocytes # 0.8 L (1.0-4.8) k/uL Glucose 118 H (74-99) mg/dL Total Protein 5.5 L (6.3-8.2) g/dL Albumin 3.0 L (3.5-5.0) g/dL Assessment and Plan Assessment: 1. Status post total right knee arthroplasty with Dr. Beauchamp. Postop day 3. Pain meds per surgical services. Patient currently on Xarelato for DVT prophylaxis 2. History of hyperlipidemia. Continue lipitor 3. Essential hypertension. Continue atenolol 4. History of depression 5. History of breast cancer. Patient states she completed treatment in 2013 currently on letrozole 6. Chest pain/angina 7. Leukocytosis white blood count slightly elevated at 13.1. Urinary analysis negative for infection. Patient remains afebrile. White blood cell 9.9 Thank you for this consultation we will continue to follow patient closely throughout stay At this time discharge planning for rehab ECF placement christelle Gregory I performed an examination of the patient and discussed their management with the Nurse Practitioner. I have reviewed the Nurse Practitioner's notes and agree with the documented findings and plan of care
--- NOTE | 2018-05-28 11:15 | US ---
EXAMINATION TYPE: US venous doppler duplex LE RT DATE OF EXAM: 05/28/2018 10:56 AM COMPARISON: NONE CLINICAL HISTORY: calf swelling and pain, s/p tka. Knee replacement on thursday, swelling SIDE PERFORMED: Right TECHNIQUE: The lower extremity deep venous system is examined utilizing real time linear array sonog payal with graded compression, doppler sonography and color-flow sonography. VESSELS IMAGED: External Iliac Vein (EIV) Common Femoral Vein Deep Femoral Vein Greater Saphenous Vein * Femoral Vein Popliteal Vein Small Saphenous Vein * Proximal Calf Veins (* superficial vessels) There is normal flow, compressibility, vascular waveforms. Right Leg: Negative for DVT. Possible fluid collection with internal echoes seen posterior knee - 4 .2 x 3.4 x 0.8 cm Subcutaneous edema channels noted incidentally. IMPRESSION: Probable complicated Dodge's cyst noted popliteal fossa. No evident deep venous thrombosi s at or above the right knee. Follow-up as indicated.
== END 2018-05-28 14:40 | DRG 470 ==
LOC: 2ORMAIN 11:20 → 4SSUR 16:21
PROVIDERS: ADMIT Orthopaedic Surgery; ATTEND Orthopaedic Surgery
PROC: 0SRC0J9 Replacement of Right Knee Joint with Synthetic Substitute, Cemented, Open Approach (ICD-10-PCS; principal; 2018-05-25 13:20)
DX: M17.11 Unilateral primary osteoarthritis, right knee (principal); Z68.41 Body mass index [BMI] 40.0-44.9, adult; E66.01 Morbid (severe) obesity due to excess calories; D72.829 Elevated white blood cell count, unspecified; E78.5 Hyperlipidemia, unspecified; G89.18 Other acute postprocedural pain; I10 Essential (primary) hypertension; J45.909 Unspecified asthma, uncomplicated; M19.041 Primary osteoarthritis, right hand; M40.209 Unspecified kyphosis, site unspecified; F32.9 Major depressive disorder, single episode, unspecified; G43.909 Migraine, unspecified, not intractable, without status migrainosus; K57.90 Diverticulosis of intestine, part unspecified, without perforation or abscess without bleeding; I25.10 Atherosclerotic heart disease of native coronary artery without angina pectoris; Z79.82 Long term (current) use of aspirin; Z79.899 Other long term (current) drug therapy; Z90.710 Acquired absence of both cervix and uterus; Z87.891 Personal history of nicotine dependence; Z85.3 Personal history of malignant neoplasm of breast; Z90.49 Acquired absence of other specified parts of digestive tract; Z92.3 Personal history of irradiation
CPT/HCPCS: 80053; 81001; 85025; 88300

== ENCOUNTER → 2018-06-11 | Outpatient (CLI) | payer MEDICARE, BC ==
--- NOTE | 2018-06-11 17:09 | US ---
EXAMINATION TYPE: US venous doppler duplex LE RT DATE OF EXAM: 06/11/2018 4:44 PM COMPARISON: 05/28/2018 CLINICAL HISTORY: M79.661 Pain in right lower leg. Recent right knee replacement, right leg pain, pat ient on blood thinners SIDE PERFORMED: Right TECHNIQUE: The lower extremity deep venous system is examined utilizing real time linear array sonog payal with graded compression, doppler sonography and color-flow sonography. VESSELS IMAGED: External Iliac Vein (EIV) Common Femoral Vein Deep Femoral Vein Greater Saphenous Vein * Femoral Vein Popliteal Vein Small Saphenous Vein * Proximal Calf Veins (* superficial vessels) Compression images not done at mid and distal femoral vein: patient unable to tolerate probe pressu re. Right Leg: Appears negative for DVT Right popliteal fossa: 5.1 x 4.1 x 4.6cm complex cystic area seen IMPRESSION: Large right popliteal cyst unchanged.. No evidence of deep venous thrombosis.
== END ==
LOC: RADUSWWP 16:15
PROVIDERS: ATTEND Orthopaedic Surgery
DX: M71.21 Synovial cyst of popliteal space [Baker], right knee (principal); M79.661 Pain in right lower leg

== ENCOUNTER → 2020-01-10 | Outpatient (CLI) | payer MEDICARE, BC ==
--- NOTE | 2020-01-11 10:00 | ECHOF ---
Referral Reason:R42 lightheaded, dizzy MEASUREMENTS -------- HEIGHT: 152.4 cm WEIGHT: 99.8 kg BP: RVIDd: 3.4 cm (< 3.3) IVSd: 1.8 cm (0.6 - 1.1) LVIDd: 4.0 cm (3.9 - 5.3) LVPWd: 1.8 cm (0.6 - 1.1) IVSs: 2.4 cm LVIDs: 2.9 cm LVPWs: 2.1 cm LAESV Index (A-L): 41.85 ml/m Ao Diam: 2.7 cm (2.0 - 3.7) AV Cusp: 2.1 cm (1.5 - 2.6) MV EXCURSION: 14.056 mm (> 18.000) MV EF SLOPE: 52 mm/s (70 - 150) EPSS: 0.5 cm MV E Edis: 0.72 m/s MV DecT: 166 ms MV A Edis: 0.98 m/s MV E/A Ratio: 0.74 RAP: 5.00 mmHg RVSP: 12.11 mmHg FINDINGS -------- This was a technically adequate study. The left ventricular size is normal. There is moderate concentric left ventricular hypertrophy. O verall left ventricular systolic function is normal with, an EF between 55 - 60 %. The diastolic fi lling pattern is normal for the age of the patient 11.30. The right ventricle is mildly enlarged. LA is moderately dilated 34-39 ml/m2 The right atrium was not well visualized. Interatrial and interventricular septum intact. There is no evidence of aortic regurgitation. There is no evidence of aortic stenosis. Moderate mitral regurgitation is present. Mild tricuspid regurgitation present. There is no evidence of pulmonary hypertension. The right v entricular systolic pressure, as measured by Doppler, is 12.11mmHg. There is no pulmonic regurgitation present. The aortic root size is normal. IVC Not well visulized. There is no pericardial effusion. CONCLUSIONS -------- 1. The left ventricular size is normal. 2. There is moderate concentric left ventricular hypertrophy. 3. Overall left ventricular systolic function is normal with, an EF between 55 - 60 %. 4. The diastolic filling pattern is normal for the age of the patient 11.30 5. The right ventricle is mildly enlarged. 6. LA is moderately dilated 34-39 ml/m2 7. Moderate mitral regurgitation is present. 8. Mild tricuspid regurgitation present. DIRECTOR OF FRONT OFFICE: Tara Law RDCS
== END | disposition home or self-care (01) ==
LOC: RADECHMAIN 11:42
PROVIDERS: ATTEND Family Medicine
DX: I08.1 Rheumatic disorders of both mitral and tricuspid valves (principal)
CPT/HCPCS: 93306

== ENCOUNTER → 2021-10-08 | Outpatient (CLI) | payer MEDICARE, BC ==
--- NOTE | 2021-10-08 15:20 | CT ---
EXAMINATION TYPE: CT brain wo con DATE OF EXAM: 10/08/2021 HISTORY: Dizziness and giddiness. CT DLP: 1081.6 mGycm. Automated Exposure Control for Dose Reduction was Utilized. TECHNIQUE: CT scan of the head is performed without contrast. COMPARISON: None. FINDINGS: There is no acute intracranial hemorrhage or midline shift identified. There is mild diff use ventricular and sulcal prominence consistent with diffuse age-related cerebral atrophy. There is moderate to advanced low-attenuation in the deep and periventricular white matter consistent with ch ronic small vessel ischemic change in patient of this age. Dominant left vertebral artery incidentall y noted. Hyperostosis frontalis. The globes are intact and the visualized sinuses are clear. Nasal septum deviated to right of midline. IMPRESSION: No acute intracranial hemorrhage or midline shift. There is mild diffuse cerebral atrop hy and moderate to advanced chronic small vessel ischemic change noted.
--- NOTE | 2021-10-08 19:29 | US ---
EXAMINATION TYPE: US carotid duplex BILAT DATE OF EXAM: 10/08/2021 COMPARISON: NONE CLINICAL HISTORY: R42 Dizziness and giddiness. Dizziness, hx hypertension. EXAM MEASUREMENTS: RIGHT: Peak Systolic Velocity (PSV) cm/sec ----- Right CCA: 75.6 ----- Right ICA: 68.6 ----- Right ECA: 79.0 ICA/CCA ratio: 0.9 RIGHT: End Diastole cm/sec ----- Right CCA: 16.2 ----- Right ICA: 15.4 ----- Right ECA: 10.1 LEFT: Peak Systolic Velocity (PSV) cm/sec ----- Left CCA: 66.8 ----- Left ICA: 80.8 ----- Left ECA: 75.6 ICA/CCA ratio: 1.2 LEFT: End Diastole cm/sec ----- Left CCA: 15.4 ----- Left ICA: 16.2 ----- Left ECA: 14.5 VERTEBRALS (direction of flow): Right Vertebral: Antegrade Left Vertebral: Antegrade Rhythm: Normal No elevated velocities at this time. High bifurcations noted bilaterally. Incidental finding: hypoechoic nodule seen laterally within right thyroid lobe: 1.2 x 0.9 x 1.4 cm. IMPRESSION: No hemodynamically significant stenosis in either internal carotid artery. There is 1. 2 cm solid right thyroid nodule. If this is not known finding further investigation with dedicated th yroid ultrasound is advised. Criteria for Assigning % of Stenosis / Diameter reduction (Estimation based on the indirect measurements of the internal carotid artery velocities (ICA PSV). 1. Normal (no stenosis)=ICA PSV < 125 cm/s: ratio < 2.0: ICA EDV<40 cm/s. 2. Less than 50% stenosis=ICA PSV < 125 cm/s: ratio < 2.0: ICA EDV<40 cm/s. 3. 50 to 69% stenosis=ICA PSV of 125 to 230 cm/s: ration 2.0 ? 4.0: ICA EDV 40-100 cm/s. 4. Greater than 70% stenosis to near occlusion= ICA PSV > 230 cm/s: ratio > 4.0: ICA EDV > 100 cm/s. 5. Near occlusion= ICA PSV velocities may be low or undetectable: variable ratio and ICA EDV. 6. Total occlusion=unable to detect flow.
== END | disposition home or self-care (01) ==
LOC: RADUSWWP 14:40
PROVIDERS: ATTEND Family Medicine
DX: I67.82 Cerebral ischemia (principal); G31.9 Degenerative disease of nervous system, unspecified; E04.1 Nontoxic single thyroid nodule
CPT/HCPCS: 70450; 93880

== ENCOUNTER → 2021-12-26 | Outpatient (CLI) | payer MEDICARE, BC ==
--- NOTE | 2021-12-26 16:17 | CT ---
EXAMINATION TYPE: CT angio head neck CT DLP: 1573.1 mGycm, Automated exposure control for dose reduction was used. DATE OF EXAM: 12/26/2021 3:22 PM COMPARISON: None. CLINICAL INDICATION:Female, 81 years old with history of I73.9 small vessel dz ,R42 dizziness,R51.9 H A; PHH, Small vessel disease, dizziness, headache TECHNIQUE: Axially acquired helical CT angiogram of the head and neck was obtained with before and af ter contrast utilizing 65 cc of Isovue-370 administered intravenously. Axial images are supplemented with 3D reconstructions which were post-processed at an independent workstation. NASCET criteria used . FINDINGS: CTA HEAD: No evidence of acute intracranial hemorrhage, mass effect, or midline shift. The ventricles, sulci, a nd cisterns are unremarkable. Confluent hypodense periventricular and subcortical regions likely rela jhon to chronic small vessel ischemic disease. The ocular lenses are surgically absent. The visualized portions of the internal carotid arteries, middle cerebral arteries, anterior cerebral arteries, and posterior cerebral arteries are patent. Atherosclerotic calcification of intracranial vascular. The basilar and vertebral arteries are patent. CTA NECK: Right Carotid System: The common carotid artery and external carotid artery are patent. The carotid bifurcation demonstrate s no evidence of hemodynamically significant stenosis. The remaining portions of the internal carotid artery demonstrate normal size without significant narrowing. Left Carotid System: The common carotid artery and external carotid artery are patent. Minimal atherosclerotic calcificati on at the carotid bifurcation. The carotid bifurcation demonstrates no evidence of hemodynamically si gnificant stenosis. The remaining portions of the internal carotid artery demonstrate normal size wit hout significant narrowing. Vertebral arteries are patent without evidence hemodynamically significant stenosis. The left vertebr al artery is dominant. There is a three-vessel aortic arch. The origins of the great vessels are patent. No evidence of hemo dynamically significant stenosis. Right upper lobe and left upper lobe 3 mm pulmonary micronodules. C entrilobular emphysematous changes. Multilevel degenerative changes of the cervical spine. IMPRESSION: 1. No evidence of dissection of the cervical internal carotid arteries or vertebral arteries or any e vidence of significant stenosis at the carotid bifurcations. 2. No evidence of high-grade stenosis or intracranial aneurysm. 3. Findings of chronic small vessel ischemic disease.
== END | disposition home or self-care (01) ==
LOC: RADCTMAIN 12:48
PROVIDERS: ATTEND Psychiatry & Neurology Neurology
DX: I67.82 Cerebral ischemia (principal)
CPT/HCPCS: 82565; 84520; 70496; 70498; 36415; 97597; Q9967

== ENCOUNTER → 2022-03-04 | Outpatient (CLI) | payer MEDICARE, BC ==
--- NOTE | 2022-03-04 17:48 | CA ---
Transthoracic Echo Report Name: Najma Godoy Age: 81 Gender: F : 1940 Exam Date: 03/04/2022 12:43 Exam Location: [facility] Ht (in): 60 Wt (lb): 200 Ordering Physician: Jimi Reyes DO Attending/Referring Phys: Florina Gómez MD [employer] Developer Francheska Calix RDCS Procedure CPT: Indications: dyspnea R06.00 Cardiac Hx: Technical Quality: Fair Contrast 1: Total Dose (mL): Contrast 2: Total Dose (mL): MEASUREMENTS (Male / Female) Normal Values 2D ECHO LV Diastolic Diameter PLAX 5.3 cm 4.2 - 5.9 / 3.9 - 5.3 cm LV Systolic Diameter PLAX 3.2 cm IVS Diastolic Thickness 1.0 cm 0.6 - 1.0 / 0.6 - 0.9 cm LVPW Diastolic Thickness 1.0 cm 0.6 - 1.0 / 0.6 - 0.9 cm LV Relative Wall Thickness 0.4 RV Internal Dim ED PLAX 3.4 cm LA Systolic Diameter LX 3.6 cm 3.0 - 4.0 / 2.7 - 3.8 cm LA Volume 44.2 cm??? 18 - 58 / 22 - 52 cm??? M-MODE Aortic Root Diameter MM 2.8 cm MV E Point Septal Separation 0.3 cm AV Cusp Separation MM 1.7 cm DOPPLER AV Peak Velocity 139.6 cm/s AV Peak Gradient 7.8 mmHg MV Area PHT 3.8 cm??? Mitral E Point Velocity 91.2 cm/s Mitral A Point Velocity 102.0 cm/s Mitral E to A Ratio 0.9 MV Deceleration Time 198.6 ms MV E' Velocity 6.2 cm/s Mitral E to MV E' Ratio 14.7 TR Peak Velocity 215.2 cm/s TR Peak Gradient 18.5 mmHg Right Ventricular Systolic Press 23.0 mmHg FINDINGS Left Ventricle Left ventricular ejection fraction is estimated at 55-60 %. Left ventricular cavity size normal. Left ventricular wall thickness normal. Right Ventricle Mild right ventricular dilatation. Right ventricular systolic pressure within normal limits. Right Atrium Normal right atrial size. Left Atrium Normal left atrial size. No evidence for an atrial septal defect. Mitral Valve Structurally normal mitral valve. Mild mitral regurgitation. Aortic Valve Trileaflet aortic valve. No aortic valve stenosis or regurgitation. Tricuspid Valve Trace to mild tricuspid regurgitation. Pulmonic Valve Trace pulmonic regurgitation. Pericardium Normal pericardium. No pericardial effusion. Aorta Normal size aortic root and proximal ascending aorta. CONCLUSIONS Normal LV systolic function Mild mitral regurgitation Previewed by: Dr. Josiah Thibodeaux MD (Electronically Signed) Final Date: 04 March 2022 17:47
== END | disposition home or self-care (01) ==
LOC: RADECHMAIN 12:12
PROVIDERS: ATTEND Family Medicine
DX: I08.1 Rheumatic disorders of both mitral and tricuspid valves (principal)
CPT/HCPCS: 93306

== ENCOUNTER → 2022-05-27 | Outpatient (CLI) | payer MEDICARE, BC ==
--- NOTE | 2022-05-27 12:55 | US ---
EXAMINATION TYPE: US thyroid st tissue head/neck DATE OF EXAM: 05/27/2022 COMPARISON: NONE CLINICAL HISTORY: E04.1 THYROID NODULE. GLAND SIZE: Right Lobe: 4.1 x 1.3 x 1.4 cm Overall Parenchyma: heterogenous Left Lobe: 4.5 x 1.5 x 1.4 cm Overall Parenchyma: heterogeneous Isthmus Thickness: 0.2 cm NODULES RIGHT: # of nodules measured on right: 2 1. 1.2 X 0.9 x 1.2 cm, upper solid or almost completely solid, anechoic nodule, which is wider hieu n tall, with smooth margins, without echogenic foci. Prior size: 1.4 X 0.9 x 1.2cm 2. 1.0 X 0.7 x 0.8 cm, inferior, solid or almost completely solid, hypoechoic nodule, which is nikki ler than wide, with smooth margins, without echogenic foci. Prior size: 1.0 X 0.5 x 0.9 cm LEFT: # of nodules measured on left: 2 1. 1.4 X 1.0 x 1.4 cm, lower lateral, solid or almost completely solid, hypoechoic nodule, which is wider than tall, with smooth margins, without echogenic foci. Prior size: 1.4 X 0.8 x 1.5cm ISTHMUS: # of nodules measured in the isthmus: 0 Bilateral neck scanned, no evidence of lymphadenopathy. IMPRESSION: Stable nonspecific thyroid nodularity and heterogeneity.
== END | disposition home or self-care (01) ==
LOC: RADUSWWP 12:05
PROVIDERS: ATTEND Otolaryngology
DX: E04.2 Nontoxic multinodular goiter (principal)
CPT/HCPCS: 76536

== ENCOUNTER → 2022-11-04 | Outpatient (CLI) | payer MEDICARE, BC ==
--- NOTE | 2022-11-04 16:47 | US ---
EXAMINATION TYPE: US thyroid st tissue head/neck DATE OF EXAM: 11/04/2022 COMPARISON: 05/27/2022 CLINICAL INDICATION: Female, 82 years old with history of E04.1 NONTOXIC SINGLE THYROID NODULE; F/U n odules GLAND SIZE: Right Lobe: 4.0 x 1.9 x 1.5 cm Overall Parenchyma: heterogenous Left Lobe: 4.2 x 1.5 x 1.6 cm Overall Parenchyma: heterogenous Isthmus Thickness: 0.2 cm NODULES RIGHT: # of nodules measured on right: 2 1. 1.2 X 0.8 x 1.1 cm, upper, solid or almost completely solid, hypoechoic TR 4 nodule, which is wi josse than tall, with smooth margins, without echogenic foci. Prior size: 1.2 x 0.9 x 1.2 cm 2. 1.3 X 0.7 x 0.8 cm, lower, solid or almost completely solid, hypoechoic TR 4 nodule, which is wi josse than tall, with ill-defined margins, without echogenic foci. Prior size: 1.0 x 0.7 x 0.8 cm LEFT: # of nodules measured on left: 1 1. 1.2 X 0.8 x 1.6 cm, lower, solid or almost completely solid, hypoechoic TR 4 nodule, which is wi josse than tall, with smooth margins, without echogenic foci. Prior size: 1.4 x 1.0 x 1.4 cm ISTHMUS: # of nodules measured in the isthmus: 0 Bilateral neck scanned, no evidence of lymphadenopathy. Stable nodules bilaterally. IMPRESSION: A few TR4 nodules which are relatively stable in the interval. One at the right lower pole is minimal ly larger at 1.3 x 0.8 cm (versus 1.0 x 0.8 cm, previously). Continue to follow.
== END | disposition home or self-care (01) ==
LOC: RADUSWWP 12:25
PROVIDERS: ATTEND Otolaryngology
DX: E04.2 Nontoxic multinodular goiter (principal)
CPT/HCPCS: 76536

== ENCOUNTER → 2023-04-20 | Outpatient (CLI) | payer MEDICARE, BC ==
--- NOTE | 2023-04-20 11:33 | US ---
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 1.5 X .8 x 1.1 cm, upper lateral, solid or almost completely solid, hypoechoic nodule, which is wider than tall, with smooth margins, without echogenic foci. TR 4 Prior size: 1.2 x .8 x 1.0 cm 2. 1.2 X .6 x .8 cm, lower medial, solid or almost completely solid, hypoechoic nodule, which is wi josse than tall, with smooth margins, without echogenic foci. Prior size: 1.3 x .7 x .8 cm LEFT: # of nodules measured on left: 1 1. 1.2 x .6 x 1.3 cm lower solid or almost completely solid, hypoechoic nodule, which is wider than tall, with smooth margins, without echogenic foci. Previous 1.2 x .8 x 1.6 cm. ISTHMUS: # of nodules measured in the isthmus:0 Bilateral neck scanned, no evidence of lymphadenopathy. IMPRESSION: 1. Enlarging Moderately suspicious nodule right lobe thyroid. Fine-needle aspiration recommended. 2017 ACR TI-RADS LEVEL: *Highest TI-RADS level nodule reported
--- NOTE | 2023-04-20 14:51 | FL ---
EXAMINATION TYPE: FL barium swallow DATE OF EXAM: 04/20/2023 COMPARISON: None HISTORY: Goiter, dysphasia TECHNIQUE: A double air contrast UGI study is performed. FINDINGS: Esophagus stylish normal caliber and has normal contour and gastroesophageal junction. Cristofer roesophageal junction opens normal caliber. There is some mild hesitancy of emptying the contrast on upright films tertiary contractions were evident. There is incomplete stripping of the esophageal faraz us in the horizontal drinking position. IMPRESSION: 1. Incomplete stripping esophageal bolus the horizontal drinking position. There is some delay in emp tying the esophagus on the overhead radiographs.
== END | disposition home or self-care (01) ==
LOC: RADUSWWP 10:11
PROVIDERS: ATTEND Otolaryngology
DX: E04.2 Nontoxic multinodular goiter (principal); R13.19 Other dysphagia
CPT/HCPCS: 74220; 76536

== ENCOUNTER → 2023-10-20 | Outpatient (CLI) | payer MEDICARE, BC ==
--- NOTE | 2023-10-20 14:46 | US ---
EXAMINATION TYPE: US thyroid st tissue head/neck DATE OF EXAM: 10/20/2023 COMPARISON: 04/20/2023. CLINICAL INDICATION: Female, 83 years old with history of E04.2 NONTOXIC MULTINODULAR GOITER; f/u GLAND SIZE: Right Lobe: 3.9 x 1.3 x 2.2 cm Overall Parenchyma: heterogeneous Left Lobe: 3.8 x 1.4 x 1.5 cm Overall Parenchyma: heterogeneous Isthmus Thickness: 0.3 cm NODULES RIGHT: # of nodules measured on right: 2 1. 1.4 x 1.2 x 0.9 cm, upper , Prior size: 1.5 x 1.1 x 0.8 cm TIRADS Score: 4 TIRADS Category 4: Composition: Solid or almost completely solid (2 points). Echogenicity: Hypoechoic (2 points). Shape: Wider than tall (0 points). Margin: Smooth (0 points). Echogenic foci: None or large comet-tail artifacts (0 points) Recommendation: If >1.5cm: FNA; If >1cm: Follow up at 1,2, 3,5 years 2. 1.0 x 0.9 x 0.6 cm, lower , Prior size: 1.2 x 1.2 x 0.6 cm TIRADS Score: 4 TIRADS Category 4: Composition: Solid or almost completely solid (2 points). Echogenicity: Hypoechoic (2 points). Shape: Wider than tall (0 points). Margin: Smooth (0 points). Echogenic foci: None or large comet-tail artifacts (0 points) Recommendation: If >1.5cm: FNA; If >1cm: Follow up at 1,2, 3,5 years LEFT: # of nodules measured on left: 1 1. 1.3 x 1.4 x 0.9 cm, lower , Prior size: 1.4 x 1.4 x 0.8 cm TIRADS Score: 4 TIRADS Category 4: Moderately Suspicious Composition: Solid or almost completely solid (2 points). Echogenicity: Hypoechoic (2 points). Shape: Wider than tall (0 points). Margin: Smooth (0 points). Echogenic foci: None or large comet-tail artifacts (0 points) Recommendation: If >1.5cm: FNA; If >1cm: Follow up at 1,2, 3,5 years ISTHMUS: # of nodules measured in the isthmus: 0 Bilateral neck scanned, no evidence of lymphadenopathy. IMPRESSION: Bilateral thyroid nodules that meet criteria for follow-up.
== END | disposition home or self-care (01) ==
LOC: RADUSWWP 13:26
PROVIDERS: ATTEND Otolaryngology
DX: E04.2 Nontoxic multinodular goiter (principal)
CPT/HCPCS: 76536